=== PATIENT | male | born 1935 | race Caucasian/White ===

== ENCOUNTER → 2018-11-24 | Outpatient (CLI) | payer OTHER | END | disposition home or self-care (01) | LOC: OIH 09:40 | PROVIDERS: ATTEND Family Medicine | DX: M48.02 Spinal stenosis, cervical region (principal); M25.78 Osteophyte, vertebrae; M54.5 Low back pain | CPT/HCPCS: 71046; 72050 ==

== ENCOUNTER → 2018-12-01 | Outpatient (CLI) | payer OTHER | END | disposition home or self-care (01) | LOC: OIH 10:59 | PROVIDERS: ATTEND Physician Assistant Medical | DX: R10.2 Pelvic and perineal pain (principal) | CPT/HCPCS: 72170 ==

== ENCOUNTER → 2019-10-23 | Outpatient (CLI) | payer OTHER | END | disposition home or self-care (01) | LOC: RAH 11:15 | PROVIDERS: ATTEND Family Medicine | DX: G31.9 Degenerative disease of nervous system, unspecified (principal); G96.19 Other disorders of meninges, not elsewhere classified; M61.48 Other calcification of muscle, other site; I65.8 Occlusion and stenosis of other precerebral arteries; Z98.890 Other specified postprocedural states | CPT/HCPCS: 70450 ==

== ENCOUNTER → 2020-08-22 | Outpatient (CLI) | payer OTHER | END | disposition home or self-care (01) | LOC: SHCH 12:57 | PROVIDERS: ATTEND Internal Medicine Cardiovascular Disease | DX: I10 Essential (primary) hypertension (principal) | CPT/HCPCS: 93306; 93356 ==

== ENCOUNTER → 2020-08-23 | Outpatient (CLI) | payer OTHER ==
[~2020-08-23] MED LIST: REGADENOSON 0.4 MG/5 ML PF SYG IVP SCH
== END | disposition home or self-care (01) ==
LOC: SHCH 08:24
PROVIDERS: ATTEND Internal Medicine Cardiovascular Disease
DX: I48.91 Unspecified atrial fibrillation (principal); R06.00 Dyspnea, unspecified
CPT/HCPCS: 78452; 93017; 96374; A9500 ×2; J2785

== ENCOUNTER → 2021-07-24 | Outpatient (CLI) | payer OTHER | END | disposition home or self-care (01) | LOC: SHCH 08:18 | PROVIDERS: ATTEND Internal Medicine Cardiovascular Disease | DX: I08.8 Other rheumatic multiple valve diseases (principal) | CPT/HCPCS: 93306; 93356 ==

== ENCOUNTER 2023-03-14 11:20 | Emergency (ER) | payer OTHER ==
[~2023-03-14] VITALS: Ht 180.3 cm; Wt 94.8 kg
[2023-03-14 12:24] LABS: BASOPHILS % (AUTO) 0.4 % (0.0-5.0); EOSINOPHILS % (AUTO) 2.9 % (0.0-8.0); HEMATOCRIT 31.2 % (42-54); LYMPHOCYTES % (AUTO) 12.7 % (21.0-51.0); MEAN CORPUSCULAR VOLUME 94.3 fL (79-99); MONOCYTES % (AUTO) 10.6 % (3.0-13.0); NEUTROPHILS % (AUTO) 73.1 % (40.0-77.0); PLATELET COUNT (AUTO) 294 K/uL (130-400); RED BLOOD CELL COUNT(AUTO) 3.31 MIL/uL (4.50-6.20); RED CELL DISTRIBUTION WIDTH 12.4 % (11.0-15.5); WHITE BLOOD COUNT (AUTO) 7.5 K/uL (4.8-10.8)
[2023-03-14 12:38] LABS: CREATININE 1.4 mg/dL (0.5-1.5)
[2023-03-14 12:42] LABS: ALBUMIN 3.5 g/dL (3.5-5.0); MAGNESIUM 1.8 mg/dL (1.80-2.40)
[2023-03-14 12:49] LABS: B-TYPE NATRIURETIC PEPTIDE 115 pg/mL (0-100)
[2023-03-14 14:33] LABS: APPEARANCE,URINE CLEAR (CLEAR); BILIRUBIN,URINE NEGATIVE (NEGATIVE); COLOR,URINE YELLOW (YELLOW); GLUCOSE, URINE (UA) NEGATIVE (NEGATIVE); KETONES,URINE NEGATIVE (NEGATIVE); LEUKOCYTE ESTERASE ,URINE 500 Leu/uL (NEGATIVE); NITRATE,URINE NEGATIVE (NEGATIVE); OCCULT BLOOD,URINE NEGATIVE (NEGATIVE); PROTEIN,URINE 30 mg/dL (NEGATIVE); UROBILINOGEN,URINE 0.2 mg/dL (0.2-1.0)
[2023-03-14 14:39] LABS: BACTERIA,URINE RARE /HPF (None Seen); MUCUS,URINE RARE LPF (None Seen); OTHER CASTS, URINE 4 /LPF (None Seen); SQUAMOUS EPITHELIAL CELL,UR RARE /HPF (0-2)
[2023-03-14] MEDS ORDERED: LEVO250T75 PO ×2 (16:17→16:51)
[2023-03-14] MEDS ORDERED: CEFTRIAXONE 1G VIAL IV ONE (16:30)
[2023-03-14] MEDS ORDERED: CEFTRIAXONE 1G VIAL ONE (17:48)
[2023-03-14] MEDS ORDERED: LIDOCAINE HCL 1% 20 ML VIAL ONE (17:50)
[2023-03-14] MEDS ORDERED: CEFTRIAXONE 1G VIAL IVPB ONE (18:00)
[2023-03-14 18:42] VITALS: BP 168/77
[2023-03-15] MEDS ORDERED: MECL-160 PO (16:03)
== END 2023-03-14 18:46 | disposition home or self-care (01) ==
LOC: EDH 11:20
DX: N39.0 Urinary tract infection, site not specified (principal); D64.9 Anemia, unspecified; S80.212A Abrasion, left knee, initial encounter; M25.561 Pain in right knee; M25.562 Pain in left knee; M54.2 Cervicalgia; M79.632 Pain in left forearm; I10 Essential (primary) hypertension; E78.00 Pure hypercholesterolemia, unspecified; W18.39XA Other fall on same level, initial encounter; Y93.89 Activity, other specified; Y92.89 Other specified places as the place of occurrence of the external cause; Y99.8 Other external cause status
CPT/HCPCS: 99285; 70450; 82550; 83735; 84484 ×2; 80053; 83880; 85025; 87088; 81001; 36415; 71100; 96372; 93005 ×2; J0696; 96365

== ENCOUNTER 2023-03-15 13:24 | Emergency (ER) | payer OTHER ==
[~2023-03-15] VITALS: Ht 180.3 cm; Wt 94.8 kg
[~2023-03-15 13:24] MED LIST changes: +LEVO250T75 PO; -REGADENOSON 0.4 MG/5 ML PF SYG IVP SCH
[2023-03-15] MEDS ORDERED: MECLIZINE HCL 25 MG TABLET PO ONE (14:00)
[2023-03-15] MEDS ORDERED: MECL-160 PO (16:03)
[2023-03-15 16:30] VITALS: BP 136/72
== END 2023-03-15 16:31 | disposition home or self-care (01) ==
LOC: EDH 13:24
DX: E78.00 Pure hypercholesterolemia, unspecified (principal); H81.10 Benign paroxysmal vertigo, unspecified ear; I10 Essential (primary) hypertension; Z86.73 Personal history of transient ischemic attack (TIA), and cerebral infarction without residual deficits
CPT/HCPCS: 70450

== ENCOUNTER 2024-06-14 09:27 | Inpatient (IN) | payer OTHER ==
[~2024-06-14] VITALS: Ht 170.2 cm; Wt 85.3 kg
[~2024-06-14 09:27] MED LIST changes: +MECL-302 PO
[2024-06-14 11:52] LABS: BASOPHILS # (AUTO) 0.02 K/uL (0.00-0.20); BASOPHILS % (AUTO) 0.3 % (0.0-5.0); EOSINOPHILS % (AUTO) 4.8 % (0.0-8.0); HEMATOCRIT 26.8 % (42-54); IMMATURE GRANULOCYTE ABSOLUTE 0.02 K/uL (0-1); LYMPHOCYTES # (AUTO) 0.9 K/uL (1.0-4.8); MEAN CORPUSCULAR VOLUME 97.1 fL (79-99); MONOCYTES # (AUTO) 0.8 K/uL (0.1-1.0); MONOCYTES % (AUTO) 12.1 % (3.0-13.0); NEUTROPHILS # (AUTO) 4.3 K/uL (1.8-7.7); NEUTROPHILS % (AUTO) 68.5 % (40.0-77.0); PLATELET COUNT (AUTO) 200 K/uL (130-400); RED BLOOD CELL COUNT(AUTO) 2.76 MIL/uL (4.50-6.20); RED CELL DISTRIBUTION WIDTH 13.5 % (11.0-15.5); WHITE BLOOD COUNT (AUTO) 6.2 K/uL (4.8-10.8)
[2024-06-14 11:59] LABS: ADD UA MICROSCOPIC NO; APPEARANCE,URINE CLEAR (CLEAR); BILIRUBIN,URINE NEGATIVE (NEGATIVE); COLOR,URINE LIGHT-YELLOW (YELLOW); GLUCOSE, URINE (UA) NEGATIVE (NEGATIVE); KETONES,URINE NEGATIVE (NEGATIVE); LEUKOCYTE ESTERASE ,URINE NEGATIVE Leu/uL (NEGATIVE); NITRATE,URINE NEGATIVE (NEGATIVE); OCCULT BLOOD,URINE NEGATIVE (NEGATIVE); PH,URINE 6.5 (5.0-8.0); PROTEIN,URINE NEGATIVE (NEGATIVE); UROBILINOGEN,URINE 0.2 mg/dL (0.2-1.0)
[2024-06-14 12:01] LABS: CREATININE 1.4 mg/dL (0.5-1.3); POTASSIUM 4.3 mmol/L (3.5-5.1)
[2024-06-14] MEDS ORDERED: LACTULOSE 20 GM/30 ML UDCUP PO PRN (13:00)
[2024-06-14] MEDS ORDERED: MAG/ALUM/SIMETH 30 ML UDCUP PO PRN (13:00)
[2024-06-14] MEDS ORDERED: acetaMINOPHEN 325 MG TAB PO PRN ×2 (13:00)
[2024-06-14] MEDS ORDERED: LIDOCAINE HCL 2% VISCOUS 30 ML, MAG/ALUM/SIMETH 30ML 30 ML, DICYCLOMINE HCL 20 MG PO PRN (13:00)
[2024-06-14] MEDS ORDERED: doCUSate SODIUM 100 MG CAP PO PRN (13:00)
[2024-06-14] MEDS ORDERED: NITROGLYCERIN 0.4 MG SL TAB SL PRN (13:00)
[2024-06-14] MEDS ORDERED: ALPRAZolam 0.5 MG TABLET PO PRN (13:00)
[2024-06-14] MEDS ORDERED: guaiFENesin-DM 200/20MG 10ML PO PRN (13:00)
[2024-06-14] MEDS ORDERED: ondanSETRON 4MG INJ IV PRN (13:00)
[2024-06-14] MEDS ORDERED: LOPERAMIDE HCL 2 MG CAP PO PRN (13:00)
[2024-06-14] MEDS ORDERED: DiphenhydrAMINE HCL 50 MG/ML VIAL IV PRN (13:00)
[2024-06-14] MEDS ORDERED: guaiFENesin SUGAR-FREE 100 MG/5 ML UDCUP PO PRN (13:00)
[2024-06-14] MEDS ORDERED: BENZOCAINE/MENTH/CETYLPYRD CL 1 EACH LOZENGE MM PRN (13:00)
[2024-06-14] MEDS ORDERED: ARTIFICAL TEARS SOL 15 ML OP PRN (13:00)
[2024-06-14] MEDS ORDERED: DiphenhydrAMINE HCL 25 MG CAPSULE PO PRN (13:00)
[2024-06-14] MEDS ORDERED: polyETHYLene GLYCol 3350 17 GM POWD.PACK PO PRN (13:00)
[2024-06-14 17:30] VITALS: O2SAT 98
[2024-06-14 18:17] VITALS: BP 186/73; PULSE 78; RESP 17; TEMP 98.4
[2024-06-14 20:00] VITALS: BP 186/89; PULSE 72; RESP 17; TEMP 98.4
[2024-06-14] MEDS ORDERED: DEXTROSE 50%-WATER 50 ML DISP.SYRIN IV PRN (20:00)
[2024-06-14] MEDS ORDERED: GLUCAGON 1MG KIT 1 MG ML IM PRN (20:00)
[2024-06-14] MEDS: INSULIN humuLIN R 100 UNIT/ML 3ML SQ SCH (20:00)
[2024-06-14] MEDS ORDERED: FAMOTIDINE 20MG TAB PO SCH (21:00)
[2024-06-14 21:31] VITALS: O2SAT 97
[2024-06-14] MEDS: FAMOTIDINE 20MG VIAL IV SCH (21:31)
[2024-06-14] MEDS: hydrALAZine 20MG/ML VIAL IV PRN (21:36)
[2024-06-14] MEDS: ZOLPidem TARTrate 5 MG TAB PO PRN (21:53)
[2024-06-14 21:59] VITALS: BP 154/59; PULSE 83
[2024-06-15] VITALS (9 sets, daily range): BP systolic 124–179; BP diastolic 56–86; PULSE 69–88; RESP 16–22; TEMP 97.9–98.6; O2SAT 92–97
[2024-06-15 05:28] LABS: BASOPHILS # (AUTO) 0.03 K/uL (0.00-0.20); BASOPHILS % (AUTO) 0.4 % (0.0-5.0); EOSINOPHILS # (AUTO) 0.19 K/uL (0.00-0.70); EOSINOPHILS % (AUTO) 2.3 % (0.0-8.0); HEMATOCRIT 29.2 % (42-54); IMMATURE GRANULOCYTE ABSOLUTE 0.03 K/uL (0-1); LYMPHOCYTES # (AUTO) 0.7 K/uL (1.0-4.8); LYMPHOCYTES % (AUTO) 8.3 % (21.0-51.0); MEAN CORPUSCULAR HEMOGLOBIN 32.9 pg (27.0-33.0); MEAN CORPUSCULAR HGB CONC 33.9 g/dL (32.0-36.0); MONOCYTES # (AUTO) 0.7 K/uL (0.1-1.0); MONOCYTES % (AUTO) 8.3 % (3.0-13.0); NEUTROPHILS # (AUTO) 6.6 K/uL (1.8-7.7); NEUTROPHILS % (AUTO) 80.3 % (40.0-77.0); PLATELET COUNT (AUTO) 236 K/uL (130-400); RED BLOOD CELL COUNT(AUTO) 3.01 MIL/uL (4.50-6.20); RED CELL DISTRIBUTION WIDTH 13.3 % (11.0-15.5); WHITE BLOOD COUNT (AUTO) 8.2 K/uL (4.8-10.8)
[2024-06-15 05:35] LABS: CREATININE 1.4 mg/dL (0.5-1.3); POTASSIUM 3.8 mmol/L (3.5-5.1)
[2024-06-15] MEDS ORDERED: ARTIFICAL TEARS SOL 15 ML OP PRN (09:00)
[2024-06-16] VITALS (11 sets, daily range): BP systolic 101–167; BP diastolic 51–81; PULSE 64–88; RESP 18–20; TEMP 98.2–99.9; O2SAT 96–97
[2024-06-16 05:24] LABS: BASOPHILS # (AUTO) 0.04 K/uL (0.00-0.20); BASOPHILS % (AUTO) 0.5 % (0.0-5.0); EOSINOPHILS # (AUTO) 0.41 K/uL (0.00-0.70); EOSINOPHILS % (AUTO) 4.9 % (0.0-8.0); HEMATOCRIT 28.1 % (42-54); IMMATURE GRANULOCYTE ABSOLUTE 0.03 K/uL (0-1); LYMPHOCYTES % (AUTO) 11.4 % (21.0-51.0); MEAN CORPUSCULAR HEMOGLOBIN 33.1 pg (27.0-33.0); MEAN CORPUSCULAR HGB CONC 33.8 g/dL (32.0-36.0); MEAN CORPUSCULAR VOLUME 97.9 fL (79-99); MONOCYTES # (AUTO) 0.7 K/uL (0.1-1.0); MONOCYTES % (AUTO) 8.4 % (3.0-13.0); NEUTROPHILS # (AUTO) 6.2 K/uL (1.8-7.7); NEUTROPHILS % (AUTO) 74.4 % (40.0-77.0); PLATELET COUNT (AUTO) 201 K/uL (130-400); RED BLOOD CELL COUNT(AUTO) 2.87 MIL/uL (4.50-6.20); RED CELL DISTRIBUTION WIDTH 13.2 % (11.0-15.5); WHITE BLOOD COUNT (AUTO) 8.3 K/uL (4.8-10.8)
[2024-06-16 05:45] LABS: CREATININE 1.6 mg/dL (0.5-1.3); POTASSIUM 3.7 mmol/L (3.5-5.1)
[2024-06-16] MEDS: 0.9%NACL 1000ML 1,000 ML IV SCH (13:19)
[2024-06-16] MEDS: PINDOLOL 5 MG TAB PO ONE (13:20)
[2024-06-16 19:09] LABS: SARS-CoV-2, RNA, NAAT NEGATIVE SARS CoV-2 (NEGATIVE)
[2024-06-16 19:14] LABS: INFLUENZA TYPE A Negative For Type A (NEGATIVE); INFLUENZA TYPE B Negative For Type B (NEGATIVE)
[2024-06-16] MEDS: PINDOLOL 5 MG TAB PO SCH (20:57)
[2024-06-17] VITALS (10 sets, daily range): BP systolic 127–151; BP diastolic 44–68; PULSE 63–75; RESP 18–20; TEMP 97.1–98.9; O2SAT 94–96
[2024-06-17 05:35] LABS: HEMATOCRIT 24.8 % (42-54); MEAN CORPUSCULAR HEMOGLOBIN 32.4 pg (27.0-33.0); MEAN CORPUSCULAR HGB CONC 33.1 g/dL (32.0-36.0); RED BLOOD CELL COUNT(AUTO) 2.53 MIL/uL (4.50-6.20); RED CELL DISTRIBUTION WIDTH 13.5 % (11.0-15.5); WHITE BLOOD COUNT (AUTO) 7.5 K/uL (4.8-10.8)
[2024-06-17 05:54] LABS: ALBUMIN 2.7 g/dL (3.5-5.0); BILIRUBIN,TOTAL 0.4 mg/dL (0.2-1.0); CREATININE 1.6 mg/dL (0.5-1.3); MAGNESIUM 1.8 mg/dL (1.80-2.40); POTASSIUM 3.5 mmol/L (3.5-5.1)
[2024-06-17] MEDS: MAGNESIUM 2GM PREMIX 50ML 50 ML IV PRN (06:33)
[2024-06-17] MEDS: FAMOTIDINE 20MG VIAL IV SCH (09:45)
[2024-06-17] MEDS: LIDOCAINE 4% ADH..PATCH TP SCH (16:00)
[2024-06-18] VITALS (8 sets, daily range): BP systolic 111–155; BP diastolic 53–71; PULSE 67–82; RESP 16–20; TEMP 97.4–98.8; O2SAT 94–96
[2024-06-18 04:51] LABS: HEMATOCRIT 23.2 % (42-54); MEAN CORPUSCULAR HEMOGLOBIN 33.3 pg (27.0-33.0); MEAN CORPUSCULAR HGB CONC 34.1 g/dL (32.0-36.0); MEAN CORPUSCULAR VOLUME 97.9 fL (79-99); RED BLOOD CELL COUNT(AUTO) 2.37 MIL/uL (4.50-6.20); RED CELL DISTRIBUTION WIDTH 13.4 % (11.0-15.5)
[2024-06-18 05:17] LABS: ALBUMIN 2.5 g/dL (3.5-5.0); BILIRUBIN,TOTAL 0.3 mg/dL (0.2-1.0); CREATININE 1.4 mg/dL (0.5-1.3); POTASSIUM 3.7 mmol/L (3.5-5.1); TOTAL PROTEIN, SERUM 5.7 g/dL (6.0-8.3)
[2024-06-18] MEDS ORDERED: LATA2.5D14 OU (15:38)
[2024-06-18] MEDS ORDERED: ASPI-1197 PO (16:08)
[2024-06-18] MEDS ORDERED: CITA10TA89 PO (16:08)
[2024-06-18] MEDS ORDERED: OMEP-420 PO (16:08)
[2024-06-18] MEDS ORDERED: CHOL50002 PO (16:08)
[2024-06-18] MEDS ORDERED: ISOS30TA92 PO (16:08)
[2024-06-18] MEDS ORDERED: CARV3.12 PO (16:08)
[2024-06-18] MEDS ORDERED: PHEN100C9 PO (16:08)
[2024-06-18] MEDS ORDERED: SIMV5TAB58 PO (16:08)
[2024-06-18] MEDS ORDERED: LOSA100T59 PO (16:08)
[2024-06-18] MEDS ORDERED: PHEN60TA15 PO (16:08)
[2024-06-18] MEDS: LATANOPROST 2.5 ML DROPS OU SCH (20:27)
[2024-06-18] MEDS: simVASTatin 10 MG TABLET PO SCH (20:37)
[2024-06-18] MEDS: PHENYTOIN SODIUM 100 MG ERCAP PO SCH (20:38)
[2024-06-19 04:00] VITALS: BP 143/61; PULSE 67; RESP 20; TEMP 98.7
[2024-06-19 05:29] LABS: HEMATOCRIT 23.4 % (42-54); MEAN CORPUSCULAR HEMOGLOBIN 32.1 pg (27.0-33.0); MEAN CORPUSCULAR HGB CONC 32.9 g/dL (32.0-36.0); MEAN CORPUSCULAR VOLUME 97.5 fL (79-99); RED BLOOD CELL COUNT(AUTO) 2.4 MIL/uL (4.50-6.20); RED CELL DISTRIBUTION WIDTH 13.4 % (11.0-15.5); WHITE BLOOD COUNT (AUTO) 6.6 K/uL (4.8-10.8)
[2024-06-19 05:47] LABS: CREATININE 1.2 mg/dL (0.5-1.3); MAGNESIUM 1.9 mg/dL (1.80-2.40); POTASSIUM 3.9 mmol/L (3.5-5.1)
[2024-06-19 08:00] VITALS: BP 142/60; PULSE 69; RESP 18; TEMP 98.6; O2SAT 97
[2024-06-19] MEDS: citaLOPram 20 MG TABLET PO SCH (09:48)
[2024-06-19] MEDS: ERGOCALCIFEROL (VITAMIN D2) 50,000 UNIT CAPSULE PO SCH (09:48)
[2024-06-19] MEDS: ASPIRIN 81MG CHEW TAB PO SCH (09:48)
[2024-06-19 12:00] VITALS: BP 155/64; PULSE 65; RESP 19; TEMP 98.7
[2024-06-19] MEDS: PHENOBARBITAL 1/4 GR TABLET PO SCH (15:03)
[2024-06-19 16:00] VITALS: BP 161/78; PULSE 68; RESP 18; TEMP 98.4
[2024-06-19 20:00] VITALS: BP 143/69; PULSE 70; RESP 20; TEMP 98.3; O2SAT 98
[2024-06-20] VITALS: BP 149/61; PULSE 70; RESP 20; TEMP 98.4
[2024-06-20 04:00] VITALS: BP 154/60; PULSE 69; RESP 20; TEMP 98.3
[2024-06-20 04:28] LABS: HEMATOCRIT 22.9 % (42-54); MEAN CORPUSCULAR HEMOGLOBIN 32.2 pg (27.0-33.0); MEAN CORPUSCULAR HGB CONC 32.8 g/dL (32.0-36.0); MEAN CORPUSCULAR VOLUME 98.3 fL (79-99); RED BLOOD CELL COUNT(AUTO) 2.33 MIL/uL (4.50-6.20); RED CELL DISTRIBUTION WIDTH 13.5 % (11.0-15.5); WHITE BLOOD COUNT (AUTO) 6.4 K/uL (4.8-10.8)
[2024-06-20 04:42] LABS: RETICULOCYTE % (AUTO) 0.77 % (0.42-2.23)
[2024-06-20 04:55] LABS: % IRON SATURATION 18.1 % (30-44)
[2024-06-20 05:09] LABS: CREATININE 1.2 mg/dL (0.5-1.3); POTASSIUM 3.9 mmol/L (3.5-5.1)
[2024-06-20] MEDS ORDERED: SOD FERRIC GLUC COMPLEX/SUC 125 MG in 0.9%NACL 100ML 100 ML IV SCH (06:00)
[2024-06-20 08:00] VITALS: BP 160/72; PULSE 71; RESP 19; TEMP 97.9; O2SAT 97
[2024-06-20 12:00] VITALS: BP 154/70; PULSE 63; RESP 18; TEMP 98.2
[2024-06-20] MEDS: SOD FERRIC GLUC COMPLEX/SUC 125 MG in 0.9%NACL 100ML 100 ML IV SCH (14:44)
[2024-06-20 20:00] VITALS: BP 150/64; PULSE 72; RESP 20; TEMP 99; O2SAT 98
[2024-06-21] VITALS (7 sets, daily range): BP systolic 120–155; BP diastolic 56–81; PULSE 65–75; RESP 18–20; TEMP 97.9–98.8; O2SAT 96–97
[2024-06-21] MEDS ORDERED: COMPOUND IV MISC 1 EACH IVSOLN MISC PRN (11:30)
[2024-06-22] VITALS (8 sets, daily range): BP systolic 154–169; BP diastolic 62–78; PULSE 66–75; RESP 18–20; TEMP 97.8–99.3; O2SAT 96–97
[2024-06-22 04:52] LABS: HEMATOCRIT 23.5 % (42-54); MEAN CORPUSCULAR HEMOGLOBIN 33.6 pg (27.0-33.0); MEAN CORPUSCULAR HGB CONC 33.6 g/dL (32.0-36.0); RED BLOOD CELL COUNT(AUTO) 2.35 MIL/uL (4.50-6.20); RED CELL DISTRIBUTION WIDTH 13.5 % (11.0-15.5); WHITE BLOOD COUNT (AUTO) 7.1 K/uL (4.8-10.8)
[2024-06-22 05:06] LABS: ALBUMIN 2.6 g/dL (3.5-5.0); BILIRUBIN,TOTAL 0.3 mg/dL (0.2-1.0); CREATININE 1.2 mg/dL (0.5-1.3); MAGNESIUM 1.7 mg/dL (1.80-2.40); POTASSIUM 3.9 mmol/L (3.5-5.1); TOTAL PROTEIN, SERUM 5.9 g/dL (6.0-8.3)
[2024-06-22] MEDS ORDERED: SOD FERRIC GLUC COMPLEX/SUC 125 MG in 0.9%NACL 100ML 100 ML IV SCH (07:00)
[2024-06-22] MEDS ORDERED: PIND5 PO (14:19)
[2024-06-23] VITALS (7 sets, daily range): BP systolic 125–158; BP diastolic 55–63; PULSE 66–74; RESP 18–20; TEMP 97.7–99.1; O2SAT 96
[2024-06-24 04:00] VITALS: BP 157/59; PULSE 68; RESP 19; TEMP 98.2
[2024-06-24 08:00] VITALS: BP 149/65; PULSE 69; RESP 18; TEMP 97.9
[2024-06-24 08:40] VITALS: O2SAT 97
[2024-06-24 12:00] VITALS: BP 147/64; PULSE 65; RESP 18; TEMP 98.2
[2024-06-24 16:00] VITALS: BP 157/63; PULSE 67; RESP 20; TEMP 98.2
== END 2024-06-24 18:25 | DRG 312 ==
LOC: EDH 09:27 → EDHIP 12:39 → 3DH 17:30
PROVIDERS: ADMIT Internal Medicine Critical Care Medicine; ATTEND Internal Medicine Critical Care Medicine
DX: I95.1 Orthostatic hypotension (principal); N17.9 Acute kidney failure, unspecified; I65.23 Occlusion and stenosis of bilateral carotid arteries; I25.10 Atherosclerotic heart disease of native coronary artery without angina pectoris; F41.9 Anxiety disorder, unspecified; Z20.822 Contact with and (suspected) exposure to COVID-19; E78.00 Pure hypercholesterolemia, unspecified; N18.30 Chronic kidney disease, stage 3 unspecified; I12.9 Hypertensive chronic kidney disease with stage 1 through stage 4 chronic kidney disease, or unspecified chronic kidney disease; D53.9 Nutritional anemia, unspecified; M25.552 Pain in left hip; G40.909 Epilepsy, unspecified, not intractable, without status epilepticus; N40.0 Benign prostatic hyperplasia without lower urinary tract symptoms; R29.6 Repeated falls; R62.7 Adult failure to thrive; Z86.73 Personal history of transient ischemic attack (TIA), and cerebral infarction without residual deficits; Z91.81 History of falling; W18.39XA Other fall on same level, initial encounter; Y93.89 Activity, other specified; Y92.099 Unspecified place in other non-institutional residence as the place of occurrence of the external cause; Y99.8 Other external cause status
CPT/HCPCS: 36415; 70450; 71045; 73020; 73501; 73502; 73551; 80048; 80053; 81003; 82306; 82607; 82728; 82948; 83735; 84425; 85025; 85027; 87635; 87804; 93005; 93306; 93356; 93880; G0378; J0360; J2916; J3475; J3490